=== PATIENT | female | born 1960 | race Caucasian/White ===

== ENCOUNTER → 2016-09-20 | Outpatient (CLI) | payer BC | LOC: CIMAGING 08:06 | DX: Z12.31 Encounter for screening mammogram for malignant neoplasm of breast (principal) | CPT/HCPCS: G0202 ==

== ENCOUNTER 2017-07-14 11:29 | Emergency (ER) | payer BC ==
[2017-07-14] MEDS ORDERED: IPRATROPIUM/ALBUTEROL 3 ML DEYVIAL IH ONE (12:00)
[2017-07-14] MEDS ORDERED: ALBUTEROL 3 ML DEYVIAL IH ONE ×3 (12:00→14:40)
--- NOTE | 2017-07-14 12:04 | EDPHY ---
H & P Stated Complaint: cough, fatigue, and difficulty breathing for 2 weeks, denies fevers Time Seen by Provider: 07/14/17 11:40 HPI/ROS: CHIEF COMPLAINT: Cough and fatigue History by patient HISTORY OF PRESENT ILLNESS: 57-year-old woman with a history of asthma, fibromyalgia and depression presents complaining of persistent fatigue, general as cough and shortness of breath for the past week or so. Patient was seen by primary care physician and started on prednisone after negative flu test with no improvement. She was then put on a prednisone taper 2 days ago and started on a Z-Liborio. She has completed the Z-Liborio but she continues to feel unwell. She has had some nausea but no vomiting. Her symptoms began with diarrhea. Her had a similar illness that began with diarrhea and nausea and then progressed to cough. Patient does not smoke nor does her . She has been using her inhalers at home with minimal relief. Her notes that she has not been sleeping well since she was started on the prednisone which makes her manic "try to do too much around the house ". REVIEW OF SYSTEMS: As in HPI, and all other systems reviewed and are negative Source: Patient, Family - Personal History Tetanus Vaccine Date: within 10 yrs - Medical/Surgical History Hx Asthma: Yes Hx Chronic Respiratory Disease: No Hx Diabetes: No Hx Cardiac Disease: No Hx Renal Disease: No Hx Cirrhosis: No Hx Alcoholism: No Hx HIV/AIDS: No Hx Splenectomy or Spleen Trauma: No Other PMH: med hx-depression,fibromyalgia,allergies-enviromental, asthma. surg- 2-csect,wisdom teeth,polynomial cycst - Social History Smoking Status: Never smoked - Physical Exam Exam: General Appearance: Alert, speaking full sentences, tired appearing poor eye contact. Head: normocephalic, atraumatic Eyes: Pupils equal and round, reactive to light, no pallor or injection. Mouth: Mucous membranes moist. Otherwise clear Respiratory: Normal, effort, lungs with diffuse expiratory wheezes and rhonchi Cardiovascular: Regular rate and rhythm. S1, S2, no murmurs, gallops or rubs appreciated Gastrointestinal: Abdomen is soft and nontender, no masses, bowel sounds normal. Back: No CVA tenderness, no bony tenderness Neurological: Awake, alert and oriented x 3, no pronator drift, normal gait, no pronator drift Skin: Warm and dry, no rashes. Musculoskeletal: No deformities or tenderness. Extremities: full range of motion, no edema, no tenderness, DP2+ bilat Psychiatric: Patient has normal affect, there is no agitation. Constitutional: Initial Vital Signs Temperature (C) 36.9 C 07/14/17 11:36 Heart Rate 69 07/14/17 11:36 Respiratory Rate 18 07/14/17 11:36 Blood Pressure 131/97 H 07/14/17 11:36 O2 Sat (%) 98 07/14/17 11:36 O2 Delivery Mode Room Air Allergies/Adverse Reactions: No Known Allergies Allergy (Verified 07/14/17 11:34) Home Medications: Medication Instructions Recorded Advair 250/50 08/13/10 Fluorouracil 08/13/10 Nasonex 08/13/10 Trazadone 08/13/10 Lyrica 08/05/14 Temazepam 08/05/14 Cymbalta 12/29/14 Albuterol Hfa Anes Only [Proair 2 puffs IH Q4 PRN #1 mdi 01/26/15 Hfa Icu (*)] Albuterol Sulfate [ALBUTEROL 1.25 mg IH Q4-6PRN PRN #30 07/14/17 SULFATE 1.25 MG/3 ML] Homronal Cream 07/14/17 Prednisone 07/14/17 Zithromax 07/14/17 Medical Decision Making - Diagnostics Imaging Results: Imaging Impressions Chest X-Ray 07/14/17 12:00 Impression: Prominence of perihilar interstitial markings and peribronchial cuffing. Findings are nonspecific but can be seen with bronchitis, reactive airway disease, or viral process. ED Course/Re-evaluation: 1:15 p.m.. Patient was re-evaluated after DuoNeb and was still feeling unwell. On repeat exam the patient had persistent diffuse expiratory wheezes. Chest x- ray showed no evidence of infiltrate or pneumonia. Radiology read agreed with this. Suspect there for acute exacerbation of asthma triggered by recent viral illness. Will check peak flow and give the patient continuous albuterol neb for an hour and re-evaluated. On re-evaluation after 3 [id number] albuterol nebulizer treatments patient was feeling somewhat better. On exam she continued to have persistent diffuse expiratory wheezes. Oxygen saturation was within normal limits. Initial peak flow was 310. Repeat peak flow after the nebs was also 310. Patient states she has never higher than the 300s. Because she continued to be symptomatic and wheezy on exam will give her another round of albuterol nebs. 3:29 p.m. on re-evaluation repeat peak flow was 340. Patient was feeling somewhat better. On repeat exam she had good air movement throughout which is diffuse scattered expiratory wheezes. There is no evidence of hypoxia or respiratory distress. Patient be discharged home with prescription for albuterol for her home nebulizer machine. Patient was concerned that she will be able to sleep due to her prednisone making her hyper but does take temazepam from time to time for sleep in the past but has not tried this. I am recommending trying the temazepam. We discussed return precautions. Patient and understand. - Data Points Medications Given: Discontinued Medications Acetaminophen (Tylenol) 1,000 mg PO EDNOW ONE Stop: 07/14/17 13:56 Last Admin: 07/14/17 13:57 Dose: 1,000 mg Albuterol (Proventil Neb) 3 ml IH EDNOW ONE Stop: 07/14/17 12:01 Last Admin: 07/14/17 12:40 Dose: 3 ml Albuterol (Proventil Neb) 10 ml IH EDNOW ONE Stop: 07/14/17 13:13 Last Admin: 07/14/17 13:29 Dose: 10 ml Albuterol (Proventil Neb) 9 ml IH EDNOW ONE Stop: 07/14/17 14:41 Last Admin: 07/14/17 14:47 Dose: 9 ml Albuterol/Ipratropium (Duoneb) 3 ml IH EDNOW ONE Stop: 07/14/17 12:01 Last Admin: 07/14/17 12:29 Dose: 3 ml Departure - Departure Disposition: Home, Routine, Self-Care Clinical Impression: Asthma with acute exacerbation in adult Qualifiers: Asthma severity: moderate Asthma persistence: persistent Qualified Code(s): J45.41 - Moderate persistent asthma with (acute) exacerbation Condition: Fair Instructions: Asthma (ED) Additional Instructions: You were seen by Dr. Lea Aviles today. Use albuterol nebulizer machine every 4 hr for the next 12-18 hours. After that use it every 6 hr. Please follow up with her primary care physician tomorrow for recheck and sooner in the ER if worse or new problems. Continue the prednisone at 40 mg and taper as prescribed. Return for any worsening or new concerns. Referrals: Valery Ma MD [Primary Care Provider] - As per Instructions Prescriptions: Albuterol Sulfate [ALBUTEROL SULFATE 1.25 MG/3 ML] 1.25 mg IH Q4-6PRN PRN #30 PRN Reason: cough or shortness of breath
[2017-07-14 13:21] VITALS: TEMP 98.2
[2017-07-14] MEDS ORDERED: ACETAMINOPHEN 500 MG TAB ONE (13:54)
[2017-07-14] MEDS ORDERED: ACETAMINOPHEN 500 MG TAB PO ONE (13:55)
[2017-07-14 15:30] VITALS: BP 108/68; PULSE 105; RESP 16; O2SAT 99
== END 2017-07-14 15:42 | disposition home or self-care (01) ==
LOC: CED 11:29
DX: J45.41 Moderate persistent asthma with (acute) exacerbation (principal)
CPT/HCPCS: 71046-PO; J7613

== ENCOUNTER → 2017-09-23 | Outpatient (CLI) | payer BC | LOC: CIMAGING 08:34 | PROVIDERS: ATTEND Family Medicine | DX: Z12.31 Encounter for screening mammogram for malignant neoplasm of breast (principal) ==

== ENCOUNTER → 2018-09-25 | Outpatient (CLI) | payer BC | LOC: BRMIMAGING 08:14 | PROVIDERS: ATTEND Family Medicine | DX: Z12.31 Encounter for screening mammogram for malignant neoplasm of breast (principal); Z13.820 Encounter for screening for osteoporosis; M81.0 Age-related osteoporosis without current pathological fracture ==